=== PATIENT | male | born 1995 | race Caucasian/White ===

== ENCOUNTER 2021-05-31 09:02 | Day surgery (SDC) | payer BC ==
[2021-05-31] MEDS ORDERED: HYDROmorphone 2 MG/ML VIAL IVP PRN (09:30)
[2021-05-31] MEDS ORDERED: PROCHLORPERAZINE 10 MG/2 ML VIAL. IVP PRN (09:30)
[2021-05-31] MEDS ORDERED: ONDANSETRON PF 4 MG/2 ML VIAL. IVP ONE (09:30)
[2021-05-31] MEDS ORDERED: fentaNYL PF VIAL 100 MCG/2 ML VIAL IVP PRN ×2 (09:30)
[2021-05-31] MEDS ORDERED: IV RINGERS,LACTATED 1000ML 1,000 ML IV SCH (09:30)
[2021-05-31] MEDS: fentaNYL PF VIAL 100 MCG/2 ML VIAL IVP PRN ×2 (10:05→12:49)
[2021-05-31] MEDS ORDERED: BUPIVACAINE-EPI 0.5% 30 ML VIAL KIT. ONE (10:14)
[2021-05-31] MEDS ORDERED: LIDOCAINE 1% PF 5 ML VIAL. ONE ×2 (10:18→12:17)
[2021-05-31] MEDS ORDERED: GLYCOPYRROLATE 1 MG/5 ML VIAL. ONE (10:18)
[2021-05-31] MEDS ORDERED: ONDANSETRON PF 4 MG/2 ML VIAL. ONE (10:18)
[2021-05-31] MEDS ORDERED: NEOSTIGMINE METHYLSULFATE 5 MG/5 ML SYRINGE. ONE (10:18)
[2021-05-31] MEDS ORDERED: KETOROLAC 30 MG/ML VIAL. ONE (10:18)
[2021-05-31] MEDS ORDERED: PROPOFOL 10 MG/ML (20ML) VIAL. IV ONE (10:18)
[2021-05-31] MEDS ORDERED: MIDAZOLAM HCL/PF 2 MG/2 ML VIAL. ONE (10:18)
[2021-05-31] MEDS ORDERED: fentaNYL PF VIAL 100 MCG/2 ML VIAL ONE ×2 (10:18→12:01)
[2021-05-31] MEDS ORDERED: DEXAMETHASONE SOD PHOS 4 MG/ML VIAL ONE (10:18)
[2021-05-31] MEDS ORDERED: ROCURONIUM 50 MG/5 ML VIAL. ONE (10:18)
--- NOTE | 2021-05-31 10:31 | PDOC2 ---
KAIT DEVRIES REGISTRY NP 05/31/21 1031: CONSULT Date of Consult Date of Consult DATE: 05/31/21 TIME: 10:24 Reason for Consult Reason for Consult: appendicitis Referring Physician Referring Physician: ER JEAN Identification/Chief Complaint Chief Complaint abdominal pain Source Source: Chart review, Patient History of Present Illness Reason for Visit: RLQ pain started at 2AM. severe, nausea, emesis, diarrhea. chills at home. Aggravated with movement Past Medical History Past Medical History no pertinent hx Past Surgical History Past Surgical History: No pertinent history Family History Family History: Other (noncontributory to current illness) Social History No ALCOHOL: rare Drugs: None Lives: Alone Current Medications Current Medications Current Medications Fentanyl Citrate (Fentanyl 2ml Vial) 25 mcg PRN Q5MIN PRN IVP MILD PAIN 1-3; Start 05/31/21 at 09:30; Stop 06/01/21 at 09:29 Fentanyl Citrate (Fentanyl 2ml Vial) 50 mcg PRN Q5MIN PRN IVP MODERATE PAIN 4- 6; Start 05/31/21 at 09:30; Stop 06/01/21 at 09:29 Morphine Sulfate (Morphine Sulfate) 1 mg PRN Q10MIN PRN IVP SEVERE PAIN 7-10; Start 05/31/21 at 09:30; Stop 06/01/21 at 09:29 Ringer's Solution 1,000 ml @ 30 mls/hr Q24H IV ; Start 05/31/21 at 09:30; Stop 05/31/21 at 21:29 Hydromorphone HCl (Dilaudid) 0.5 mg PRN Q10MIN PRN IVP SEVERE PAIN 7-10, 2nd CHOICE; Start 05/31/21 at 09:30; Stop 06/01/21 at 09:29 Prochlorperazine Edisylate (Compazine) 5 mg PACU PRN PRN IVP NAUSEA, MRX1; Start 05/31/21 at 09:30; Stop 06/01/21 at 09:29 Ondansetron HCl (Zofran) 4 mg 1X ONCE IVP Last administered on 05/31/21at 09:5 3; Start 05/31/21 at 09:30; Stop 05/31/21 at 09:33; Status DC Fentanyl Citrate (Fentanyl 2ml Vial) 50 mcg 1X PERIOP PRN IVP PAIN Last administered on 05/31/21at 10:05; Start 05/31/21 at 10:00 Bupivacaine HCl/ Epinephrine Bitart (Sensorcain-Epi 0.5% Kit) 30 ml STK-MED ONCE .ROUTE ; Start 05/31/21 at 10:14; Stop 05/31/21 at 10:14; Status DC Ketorolac Tromethamine (Toradol 30mg Vial) 30 mg STK-MED ONCE .ROUTE ; Start 05/31/21 at 10:18; Stop 05/31/21 at 10:18; Status DC Ondansetron HCl (Zofran) 4 mg STK-MED ONCE .ROUTE ; Start 05/31/21 at 10:18; Stop 05/31/21 at 10:18; Status DC Propofol (Diprivan) 200 mg STK-MED ONCE IV ; Start 05/31/21 at 10:18; Stop 05/31/21 at 10:18; Status DC Dexamethasone Sodium Phosphate (Decadron) 4 mg STK-MED ONCE .ROUTE ; Start at 10:18; Stop 05/31/21 at 10:18; Status DC Lidocaine HCl (Xylocaine-Mpf 1% 5ml Vial) 5 ml STK-MED ONCE .ROUTE ; Start 05/31/21 at 10:18; Stop 05/31/21 at 10:18; Status DC Midazolam HCl (Versed) 2 mg STK-MED ONCE .ROUTE ; Start 05/31/21 at 10:18; Stop 05/31/21 at 10:18; Status DC Fentanyl Citrate (Fentanyl 2ml Vial) 100 mcg STK-MED ONCE .ROUTE ; Start 05/31/21 at 10:18; Stop 05/31/21 at 10:18; Status DC Glycopyrrolate (Robinul) 1 mg STK-MED ONCE .ROUTE ; Start 05/31/21 at 10:18; Stop 05/31/21 at 10:19; Status DC Neostigmine [place] (Neostigmine Methylsulfate) 5 mg STK-MED ONCE .ROUTE ; Start 05/31/21 at 10:18; Stop 05/31/21 at 10:19; Status DC Rocuronium [place] (Zemuron) 50 mg STK-MED ONCE .ROUTE ; Start 05/31/21 at 10:18; Stop 05/31/21 at 10:19; Status DC Allergies Allergies: Coded Allergies: Sulfa (Sulfonamide Antibiotics) (Verified Allergy, Intermediate, Rash, 05/31/21) amoxicillin (Verified Allergy, Intermediate, Rash, 05/31/21) ROS General: YES: Chills, Fatigue PSYCHOLOGICAL ROS: No: Anxiety, Depression Eyes: No Blurry vision, No Double vision HEENT: No: Heacaches, Sore Throat Hematological and Lymphatic: No: Bleeding Problems, Blood Clots Respiratory: No: Cough, Shortness of breath Cardiovascular: No Chest Pain, No Palpitations Gastrointestinal: Yes Other (see hpi) Genitourinary: YES Dysuria; No Hematuria Musculoskeletal: No Joint Pain, No Muscular Weakness Neurological: No Impaired Coord/balance, No Numbness/Tingling Skin: No Pruritus, No Rash Physical Exam General: Alert, Oriented X3, Cooperative HEENT: Atraumatic, PERRLA Lungs: Clear to auscultation, Normal air movement Heart: Regular rate, Normal S1, Normal S2 Abdomen: Soft, Other (RLQ TTP, rebound TTP mild) Extremities: No clubbing, No cyanosis Skin: No rashes, No breakdown Neuro: Normal gait, Normal speech Psych/Mental Status: Mental status NL, Mood NL MUSCULOSKELETAL: No deformity, No swelling Vitals VITALS Vital Signs Date Time Temp Pulse Resp B/P (MAP) Pulse Ox O2 Delivery O2 Flow Rate FiO2 05/31/21 09:16 98.0 102 13 144/94 94 Room Air 98.0 Assessment/Plan Assessment/Plan acute appendicitis plan lap appy today ALLISON CERNA MD 05/31/21 1216: CONSULT Assessment/Plan Assessment/Plan Pt seen and examined by myself; 25 year old male developed abdominal pain in RLQ, started early this morning, reports associated vomiting. PMH/PSH/ROS/SH as above; exam: alert, oriented, no distress, lungs clear, heart RR and R, abdomen obese, soft, tender with guarding in RLQ, ext neg for edema. A/P) RLQ pain, suspect appendicitis, plan to OR for laparoscopy. The details and risks of surgery were discussed with the patient. He understands and would like to p roceed. KAIT DEVRIES APRN May 31, 2021 10:31 ALLISON CERNA MD May 31, 2021 12:16
[2021-05-31] MEDS ORDERED: SUCCINYLCHOLINE 200 MG/10 ML VIAL. ONE (10:57)
--- NOTE | 2021-05-31 12:15 | PDOC4 ---
Operative Note Operative Note Preoperative Diagnosis: Acute Appendicitis Postoperative Diagnosis: Same Procedure: Laparoscopic appendectomy Surgeon: Garry Analytical Statistician: EVELYN Jara Anesthesia: Gen. EBL: 10 mL Specimen: Appendix to pathology Drains: None Complications: None Indication: The patient is a 25-year-old male who reported to the emergency department with abdominal pain. The evaluation is consistent with acute appendicitis. The patient was offered surgical treatment with a laparoscopic appendectomy. The risks of surgery were discussed which include bleeding, infection, visceral injury, pain, anesthetic risk, potential need for additional surgery or procedure. The patient understands and would like to proceed. Description: The patient was taken to the operating room and placed supine on the operating table. Gen. anesthesia was performed. The abdomen was prepped with ChloraPrep and draped in a standard surgical manner. A supraumbilical incision w as made through which a veress needle was inserted and a pneumoperitoneum was created. A visualized 5 mm trocar was inserted and the laparoscope was introduced. In the left lower quadrant a 5 mm trocar was inserted. In the suprapubic region a 12 mm trocar was inserted. The appendix was identified and appeared inflamed consistent with acute appendicitis. There was no clear evide nce of perforation or periappendiceal abscess. The mesoappendix was bluntly from the appendix. The mesoappendix was controlled using several clips and it was divided. The appendix was then amputated off the cecum using an Endo KIYA 45 stapling device. The appendix was then placed in an endoscopic bag and extracted at the suprapubic incision site. The fascia there was closed with 0 Vicryl and infiltrated with half percent Marcaine with epinephrine. The RLQ was visualized and the staple line appeared well intact and hemostasis was good. No other abnormalities were identified grossly. The remaining ports were removed and the pneumoperitoneum was relieved. The skin at all incision sites was closed with 4-0 Monocryl. Steri-Strips and dressings were applied. The patient tolerated the procedure well and was sent to the recovery room in stable condition. At the end of the case all counts were correct. ALLISON CERNA MD May 31, 2021 12:15
[2021-05-31] MEDS ORDERED: OXYC-325 PO (12:20)
--- NOTE | 2021-05-31 12:22 | DISCH ---
DISCHARGE INSTRUCTIONS Condition on Discharge Condition on Discharge: Stable Activity After Discharge Activity Instructions for Disc: Other, see below (no lifting over 20 lbs X 2 weeks, no driving while taking pain meds) Diet after Discharge Diet after Discharge: Regular Wound Incision Care Wound/Incision Care: Other, see below (may remove bandaids tomorrow and shower, no submerging underwater or swimming for 2 weeks) Follow-Up Follow up with: Dr Cerna in office in 2 weeks, call for appointment [phone] ALLISON CERNA MD May 31, 2021 12:22
[2021-05-31] MEDS ORDERED: PROCHLORPERAZINE 10 MG/2 ML VIAL. ONE (12:26)
[2021-05-31] MEDS ORDERED: MORPHINE SULFATE 2 MG/ML INJ. ONE ×2 (13:06→13:57)
[2021-05-31] MEDS: MORPHINE SULFATE 2 MG/ML INJ. IVP PRN ×4 (13:08→14:19)
[2021-05-31] MEDS ORDERED: oxyCODONE/APAP 5/325 1 TAB TABLET PO PRN (13:45)
[2021-05-31 13:55] VITALS: BP 110/61
--- NOTE | 2021-06-01 16:11 | PATHOLOGY ---
[facility] Accession Number: [id number] . 01 Material submitted: . appendix - APPENDIX . 01 Clinical history: . APPENDICITIS LAP APPY POSS OPEN . 02 Diagnosis: Appendix, appendectomy: - Acute appendicitis with focal serosal exudate. ([facility]; 06/01/2021) [facility] 06/01/2021 1351 Local . 02 Comment: There is no evidence of rupture. ([facility]; 06/01/2021) . 02 Electronically signed: . Quang Peres MD, Pathologist NPI- [id number] . 01 Gross description: . Fixative: Formalin Labeled: Appendix Appendix length: 7.2 cm Appendix diameter: 1.0 cm Mesoappendix: 3.0 cm Proximal margin: Stapled Serosa: [place]-schmitt, mild amount of exudate Cut surface: Patent to dilated lumen filled with exudate Luminal diameter: 0.2-0.7 cm Perforation: None identified Lesions/abnormalities: None identified . Proximal margin and bisected tip in cassette A1. Additional traveling representative cross-sections in cassette A2-A3. ([facility]; 05/31/2021) NRI/NRI 05/31/2021 1741 Local . 02 Pathologist provided ICD-10: K35.80 . 02 CPT . 819802 Specimen Comment: A courtesy copy of this report has been sent to [phone] Specimen Comment: Report sent to Performed at: 01 [facility] [address], [place] [id number] MD Giacomo Lang MD Phone: [phone] Performed at: [address] [facility] [address] [place], [place] [id number] MD Quang Peres MD Phone: [phone]
== END 2021-05-31 14:41 | disposition home or self-care (01) ==
LOC: SURG 09:02
PROVIDERS: ATTEND Surgery
DX: K35.80 Unspecified acute appendicitis (principal)
CPT/HCPCS: 44970; J0330; J0780; J1100; J1885; J2250; J2270; J2405; J2704; J2710; J3010; J3490; A4314; A4364; A4452; A4930; A6219

== ENCOUNTER 2021-06-03 20:36 | Emergency (ER) | payer BC ==
[~2021-06-03] VITALS: Ht 180.3 cm; Wt 107.7 kg
[~2021-06-03 20:36] MED LIST: OXYC-325 PO
[2021-06-04] MEDS ORDERED: fentaNYL PF VIAL 100 MCG/2 ML VIAL IVP ONE (03:00)
[2021-06-04] MEDS ORDERED: ONDANSETRON PF 4 MG/2 ML VIAL. IVP ONE (03:00)
--- NOTE | 2021-06-04 03:00 | ED.ADGEN ---
Past Medical History Past Surgical History: Appendectomy General Adult EDM: Chief Complaint: ABDOMINAL PAIN HPI: HPI: Patient is a 25 year old male coming in for continued low-grade fevers and worsening abdominal pain. Patient is 4 days postop from a laparoscopic appendectomy. He went to [facility] ER the next day for fevers, temperature 99 and chills. Patient states initially after surgery he had some blood in his urine that is resolved now. Denies any dysuria at this time. Says the pain radiates to his groin into his back. Worse with urinating. Also states that his father thought he saw some yellowish drainage from his suprapubic incision site. Due to COVID-19 pandemic the surgery was done as an outpatient and he was discharged after the procedure since there were no complications. Review of Systems: Review of Systems: All other systems within normal limits except for as noted in the HPI Current Medications: Current Medications Medications (Trade) Dose Ordered Sig/Evelia Start Time Stop Time Status Last Admin Dose Admin Fentanyl Citrate (Fentanyl 2ml Vial) 75 mcg 1X ONCE 06/04/21 03:00 06/04/21 03:01 DC 06/04/21 03:31 75 MCG Info (CONTRAST GIVEN -- Rx MONITORING) 1 each PRN DAILY PRN 06/04/21 03:45 06/06/21 03:44 Iohexol (Omnipaque 350 Mg/ml) 100 ml 1X ONCE 06/04/21 04:00 06/04/21 04:01 DC 06/04/21 04:31 100 ML Ondansetron HCl (Zofran) 4 mg 1X ONCE 06/04/21 03:00 06/04/21 03:01 DC 06/04/21 03:30 4 MG Allergies: Allergies: Allergies Coded Allergies Type Severity Reaction Last Updated Verified Sulfa (Sulfonamide Antibiotics) Allergy Intermediate Rash 05/31/21 Yes amoxicillin Allergy Intermediate Rash 05/31/21 Yes Physical Exam: PE: Constitutional: Well developed, well nourished, no acute distress, non-toxic appearance. [] HENT: Normocephalic, atraumatic, bilateral external ears normal, nose normal. [] Eyes: PERRLA, conjunctiva normal, no discharge. [] Neck: No rigidity, supple, no stridor. [] Cardiovascular: Regular rate and rhythm, brisk cap refill [] Lungs & Thorax: Non labored symmetric respirations, no tachypnea or respiratory distress [] Abdomen: Soft, nondistended, tenderness to right lower quadrant and suprapubic area, no hernias inguinal area, well-healing incisions. Skin: Warm, dry, no erythema, no rash. [] Back: Unremarkable Extremities: No deformities, range of motion grossly intact, no lower extremity edema [] Neurologic: Alert and oriented X 3, no focal deficits noted. [] Psychologic: Affect normal, judgement normal, mood normal. [] Current Patient Data: Labs: Laboratory Tests Test 06/04/21 01:21 06/04/21 03:00 Glucose (Fingerstick) 309 mg/dL (70-99) H White Blood Count 9.1 x10^3/uL (4.0-11.0) Red Blood Count 5.11 x10^6/uL (4.30-5.70) Hemoglobin 15.0 g/dL (13.0-17.5) Hematocrit 43.5 % (39.0-53.0) Mean Corpuscular Volume 85 fL (79-100) Mean Corpuscular Hemoglobin 29 pg (25-35) Mean Corpuscular Hemoglobin Concent 35 g/dL (31-37) Red Cell Distribution Width 12.9 % (11.5-14.5) Platelet Count 263 x10^3/uL (140-400) Neutrophils (%) (Auto) 53 % (31-73) Lymphocytes (%) (Auto) 37 % (24-48) Monocytes (%) (Auto) 9 % (0-9) Eosinophils (%) (Auto) 0 % (0-3) Basophils (%) (Auto) 1 % (0-3) Neutrophils # (Auto) 4.8 x10^3/uL (1.8-7.7) Lymphocytes # (Auto) 3.4 x10^3/uL (1.0-4.8) Monocytes # (Auto) 0.8 x10^3/uL (0.0-1.1) Eosinophils # (Auto) 0.0 x10^3/uL (0.0-0.7) Basophils # (Auto) 0.1 x10^3/uL (0.0-0.2) Urine Collection Type Unknown Urine Color Yellow Urine Clarity Clear Urine pH 5.5 (<5.0-8.0) Urine Specific [place] 1.020 (1.000-1.030) Urine Protein Negative mg/dL (NEG-TRACE) Urine Glucose (UA) >=1000 mg/dL (NEG) Urine Ketones (Stick) Negative mg/dL (NEG) Urine Blood Negative (NEG) Urine Nitrite Negative (NEG) Urine Bilirubin Negative (NEG) Urine Urobilinogen Dipstick 0.2 mg/dL (0.2 mg/dL) Urine Leukocyte Esterase Negative (NEG) Urine RBC 0 /HPF (0-2) Urine WBC Occ /HPF (0-4) Urine Squamous Epithelial Cells Occ /LPF Urine Bacteria 0 /HPF (0-FEW) Sodium Level 130 mmol/L (136-145) L Potassium Level 4.0 mmol/L (3.5-5.1) Chloride Level 98 mmol/L (98-107) Carbon Dioxide Level 24 mmol/L (21-32) Anion Gap 8 (6-14) Blood Urea Nitrogen 10 mg/dL (8-26) Creatinine 0.8 mg/dL (0.7-1.3) Estimated GFR (Cockcroft-Gault) 116.0 BUN/Creatinine Ratio 13 (6-20) Glucose Level 281 mg/dL (70-99) H Lactic Acid Level 1.8 mmol/L (0.4-2.0) Calcium Level 8.7 mg/dL (8.5-10.1) Total Bilirubin 0.3 mg/dL (0.2-1.0) Aspartate Amino Transferase (AST) 21 U/L (15-37) Alanine Aminotransferase (ALT) 36 U/L (16-63) Alkaline Phosphatase 71 U/L (46-116) Total Protein 7.5 g/dL (6.4-8.2) Albumin 3.2 g/dL (3.4-5.0) L Albumin/Globulin Ratio 0.7 (1.0-1.7) L Lipase 99 U/L (73-393) Laboratory Tests 06/04/21 03:00 Laboratory Tests 06/04/21 03:00 Vital Signs: Vital Signs Date Time Temp Pulse Resp B/P (MAP) Pulse Ox O2 Delivery O2 Flow Rate FiO2 06/04/21 04:57 78 124/82 (96) 95 Room Air 06/04/21 03:31 18 06/04/21 01:26 98.0 98.0 EKG: EKG: [] Heart Score: C/O Chest Pain: No Risk Factors: Risk Factors: DM, Current or recent (<one month) smoker, HTN, HLP, family history of CAD, obesity. Risk Scores: Score 0 - 3: 2.5% MACE over next 6 weeks - Discharge Home Score 4 - 6: 20.3% MACE over next 6 weeks - Admit for Clinical Observation Score 7 - 10: 72.7% MACE over next 6 weeks - Early Invasive Strategies Radiology/Procedures: Radiology/Procedures: [facility] [address] [place] [address] IMAGING REPORT Signed PATIENT: WHITNEY MATTHEWS: [id number] : 1995 LOCATION: ER AGE: 25 SEX: M EXAM STATUS: REG ER ORD. PHYSICIAN: BIA DIAZ MD REASON: fever, abd pain, s/p appy PROCEDURE: CT ANGIO CHEST W ABD PEL W/ EXAM: CT CHEST WITH CONTRAST - PULMONARY ANGIOGRAM CT ABDOMEN AND PELVIS WITH CONTRAST INDICATION: Fever and abdominal pain post appendectomy COMPARISON: CT abdomen 06/01/2021 TECHNIQUE: Helical CT of the chest abdomen, and pelvis performed after the administration of 100 mL Omnipaque [address] of the chest was timed for angiographic evaluation of the pulmonary arteries per PE protocol. Coronal and sagittal 3D MIP reformations were obtained of the chest. Sagittal and coronal reformats were obtained of the abdomen and pelvis. One or more of the following individualized dose reduction techniques were utilized for this examination: 1. Automated exposure control 2. Adjustment of the mA and/or kV according to patient size 3. Use of iterative reconstruction technique. FINDINGS: CHEST: Pulmonary Arteries: Contrast bolus is adequate. There is no acute pulmonary em bolism. Heart/Systemic Vasculature: Heart is normal in size. No pericardial effusion. Thoracic aorta is normal in caliber. Mediastinum and [place]: No lymphadenopathy. Lungs and pleura: There is mild scattered atelectasis in the lower lobes, lingula, and right middle lobe. The lungs are otherwise clear. No pleural effusion. Central airways are clear. Neck/Axilla/Body Wall: No lymphadenopathy. Chest wall is unremarkable. Bones: No acute osseous abnormality. ABDOMEN AND PELVIS: Liver: Normal. Gallbladder/Biliary Tree: Normal. Pancreas: Normal. Spleen: Normal. Adrenal Glands: Normal. Kidneys/Ureters/Bladder: Normal. No hydronephrosis. Reproductive Organs: Prostate gland is normal. Stomach, small bowel, and colon: Stomach, small bowel, and colon are normal. There are surgical changes of appendectomy. No fluid collection or free fluid.. Vasculature: Abdominal aorta is normal in caliber. Lymph Nodes: No lymphadenopathy. A few lymph nodes in the right lower quadrant are likely reactive. Peritoneum and retroperitoneum: There is no free fluid. Tiny focus of free air in the lower anterior abdomen is likely postoperative. Bones: No acute osseous abnormality. IMPRESSION: 1. Surgical changes of recent appendectomy. No evidence of complication. 2. No acute pulmonary embolism or other acute abnormality in the chest. Electronically signed by: Bia Pitts MD (06/04/2021 5:31 AM) [id number] DICTATED and SIGNED BY: BIA PITTS MD DATE: 06/04/21 [id number] [] Course & Med Decision Making: Course & Med Decision Making Pertinent Labs and Imaging studies reviewed. (See chart for details) [] Dragon Disclaimer: Dragon Disclaimer: This electronic medical record was generated, in whole or in part, using a voice recognition dictation system. Departure Departure Impression: Primary Impression: Diabetes mellitus, new onset Additional Impression: Postoperative abdominal pain with fever Disposition: HOME / SELF CARE / HOMELESS Condition: STABLE Referrals: NO PCP (PCP) Patient Instructions: Diabetes, FAQs Scripts Metformin Hcl (METFORMIN HCL) 500 Mg Tablet 500 MG PO BIDWMEALS for ANTI-DIABETIC for 30 Days, #60 TAB 0 Refills Prov: BIA DIAZ MD 06/04/21 Problem Qualifiers BIA DIAZ MD Jun 04, 2021 03:00
[2021-06-04 03:29] LABS: BASO # 0.1 x10^3/uL (0.0-0.2); BASO % 1 % (0-3); EOS % 0 % (0-3); HEMATOCRIT 43.5 % (39.0-53.0); LYMPH # 3.4 x10^3/uL (1.0-4.8); LYMPH % 37 % (24-48); MEAN CORPUSCULAR HEMOGLOBIN 29 pg (25-35); MEAN CORPUSCULAR HGB CONC 35 g/dL (31-37); MEAN CORPUSCULAR VOLUME 85 fL (79-100); MONO # 0.8 x10^3/uL (0.0-1.1); MONO % 9 % (0-9); NEUT # 4.8 x10^3/uL (1.8-7.7); NEUT % 53 % (31-73); PLATELET COUNT 263 x10^3/uL (140-400); RED BLOOD COUNT 5.11 x10^6/uL (4.30-5.70); RED CELL DISTRIBUTION WIDTH 12.9 % (11.5-14.5); WHITE BLOOD COUNT 9.1 x10^3/uL (4.0-11.0)
[2021-06-04 03:32] LABS: BILIRUBIN,URINE NEGATIVE (NEG); CLARITY,URINE CLEAR; COLOR,URINE YELLOW; NITRITE,URINE NEGATIVE (NEG); PH,URINE 5.5 (<5.0-8.0); PROTEIN,URINE NEGATIVE (NEG-TRACE); UROBILINOGEN,URINE 0.2 mg/dL (0.2 mg/dL)
[2021-06-04 03:39] LABS: CALCIUM 8.7 mg/dL (8.5-10.1); CREATININE 0.8 mg/dL (0.7-1.3)
[2021-06-04 03:41] LABS: BACTERIA,URINE 0 /HPF (0-FEW); RBC,URINE 0 /HPF (0-2); WBC,URINE OCC /HPF (0-4)
[2021-06-04 03:45] LABS: ALBUMIN 3.2 g/dL (3.4-5.0); ALBUMIN/GLOBULIN RATIO 0.7 (1.0-1.7); TOTAL BILIRUBIN 0.3 mg/dL (0.2-1.0); TOTAL PROTEIN 7.5 g/dL (6.4-8.2)
[2021-06-04] MEDS ORDERED: CONTRAST GIVEN. MC PRN (03:45)
[2021-06-04] MEDS ORDERED: IOHEXOL 350 MG/ML 100 ML VIAL. IV ONE (04:00)
[2021-06-04 05:27] VITALS: BP 145/89
--- NOTE | 2021-06-04 05:33 | RAD ---
EXAM: CT CHEST WITH CONTRAST - PULMONARY ANGIOGRAM CT ABDOMEN AND PELVIS WITH CONTRAST INDICATION: Fever and abdominal pain post appendectomy COMPARISON: CT abdomen 06/01/2021 TECHNIQUE: Helical CT of the chest abdomen, and pelvis performed after the administration of 100 mL Omnipaque [address] of the chest was timed for angiographic evaluation of the pulm onary arteries per PE protocol. Coronal and sagittal 3D MIP reformations were obtained of the chest. Sagittal and coronal reformats were obtained of the abdomen and pelvis. One or more of the following individualized dose reduction techniques were utilized for this examinat ion: 1. Automated exposure control 2. Adjustment of the mA and/or kV according to patient size 3. Use of iterative reconstruction technique. FINDINGS: CHEST: Pulmonary Arteries: Contrast bolus is adequate. There is no acute pulmonary embolism. Heart/Systemic Vasculature: Heart is normal in size. No pericardial effusion. Thoracic aorta is derek l in caliber. Mediastinum and [place]: No lymphadenopathy. Lungs and pleura: There is mild scattered atelectasis in the lower lobes, lingula, and right middle l obe. The lungs are otherwise clear. No pleural effusion. Central airways are clear. Neck/Axilla/Body Wall: No lymphadenopathy. Chest wall is unremarkable. Bones: No acute osseous abnormality. ABDOMEN AND PELVIS: Liver: Normal. Gallbladder/Biliary Tree: Normal. Pancreas: Normal. Spleen: Normal. Adrenal Glands: Normal. Kidneys/Ureters/Bladder: Normal. No hydronephrosis. Reproductive Organs: Prostate gland is normal. Stomach, small bowel, and colon: Stomach, small bowel, and colon are normal. There are surgical knowles es of appendectomy. No fluid collection or free fluid.. Vasculature: Abdominal aorta is normal in caliber. Lymph Nodes: No lymphadenopathy. A few lymph nodes in the right lower quadrant are likely reactive. Peritoneum and retroperitoneum: There is no free fluid. Tiny focus of free air in the lower anterior abdomen is likely postoperative. Bones: No acute osseous abnormality. IMPRESSION: 1. Surgical changes of recent appendectomy. No evidence of complication. 2. No acute pulmonary embolism or other acute abnormality in the chest. Electronically signed by: Bia Pitts MD (06/04/2021 5:31 AM) [id number]
[2021-06-04] MEDS ORDERED: METF500T16 PO (05:47)
== END 2021-06-04 06:05 | disposition home or self-care (01) ==
LOC: ER 20:36
DX: G89.18 Other acute postprocedural pain (principal); R10.31 Right lower quadrant pain; R50.9 Fever, unspecified; E11.9 Type 2 diabetes mellitus without complications; Z90.89 Acquired absence of other organs; Z88.1 Allergy status to other antibiotic agents; Z88.2 Allergy status to sulfonamides
CPT/HCPCS: 36415; 71275; 74177; 80053; 81001; 82962; 83605; 83690; 85025; 87040; 96374; 96375; 99285; J2405; J3010; Q9967

== ENCOUNTER → 2021-06-15 | Outpatient (CLI) | payer BC ==
[2021-06-04 05:27] VITALS: BP 145/89
[~2021-06-15] MED LIST changes: +METF500T16 PO
[2021-06-15 14:24] LABS: BASO # 0.1 x10^3/uL (0.0-0.2); BASO % 1 % (0-3); EOS % 0 % (0-3); HEMATOCRIT 46.8 % (39.0-53.0); LYMPH # 3.3 x10^3/uL (1.0-4.8); LYMPH % 40 % (24-48); MEAN CORPUSCULAR HEMOGLOBIN 29 pg (25-35); MEAN CORPUSCULAR HGB CONC 34 g/dL (31-37); MEAN CORPUSCULAR VOLUME 85 fL (79-100); MONO # 0.8 x10^3/uL (0.0-1.1); MONO % 10 % (0-9); NEUT % 49 % (31-73); PLATELET COUNT 277 x10^3/uL (140-400); RED BLOOD COUNT 5.51 x10^6/uL (4.30-5.70); WHITE BLOOD COUNT 8.2 x10^3/uL (4.0-11.0)
[2021-06-15 14:36] LABS: BILIRUBIN,URINE NEGATIVE (NEG); CALCIUM 9.2 mg/dL (8.5-10.1); CLARITY,URINE CLEAR; COLOR,URINE YELLOW; NITRITE,URINE NEGATIVE (NEG); POTASSIUM 4.1 mmol/L (3.5-5.1); PROTEIN,URINE 30 mg/dL (NEG-TRACE); UROBILINOGEN,URINE 0.2 mg/dL (0.2 mg/dL)
[2021-06-15 14:55] LABS: BACTERIA,URINE 0 /HPF (0-FEW); RBC,URINE 0 /HPF (0-2); WBC,URINE 0 /HPF (0-4)
== END ==
LOC: LAB 13:55
PROVIDERS: ATTEND Nurse Practitioner Family
DX: R10.31 Right lower quadrant pain (principal)
CPT/HCPCS: 36415; 80048; 81001; 85025